=== PATIENT | male | born 1960 | race Caucasian/White ===

== ENCOUNTER 2021-02-02 05:11 | Observation (INO) ==
--- NOTE | 2021-01-23 08:41 | PAT Medication Instructions ---
Medication Instructions Date of Service January 23, 2021 Home Medications levothyroxine 200 mcg tablet 200 mcg PO DAILY celecoxib 200 mg capsule 200 mg PO DAILY ASK your surgeon for instructions celecoxib 200 mg capsule 200 mg PO DAILY Take morning of surgery With a small sip of water, OTHERWISE NOTHING TO EAT OR DRINK AFTER MIDNIGHT: levothyroxine 200 mcg tablet 200 mcg PO DAILY Other Notes If you have any questions please call us at [phone] or [phone] or [phone] or [phone]
--- NOTE | 2021-01-26 11:54 | Anesthesiology Consultation ---
Date of Service January 26, 2021 Assessment & Plan (1) Encounter for pre-operative examination: - COVID screening: Per assessment on 01/26: Travel screen negative, no known COVID-19 positive contacts or current COVID-19 related symptoms. 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 Patient vaccinated. Surgeon arranging preop COVID testing (scheduled 01/29; [facility]). Awaiting results. - Sleep apnea: s/p UPPP and then subsequent hypoglossal nerve stimulator placement- he only turns device on for sleeping hours (will bring remote DOS) Chart Review Chart Review: Acceptable Risk for Surgery and Patient seen in Pre Admission Testing Teaching & Discussion Pre-Anesthesia Teaching/Discussion Notes: Instructed NPO after midnight before surgery,except medications with 15 cc of water. Medication instructions provided according to the PAT guidelines. History Surgery Operation Date: 02/02/21 09:20 Proposed Procedures p Left Total Hip Arthroplasty Anterior - Wilfrid Morales, Height/Weight Height: 5 ft 10 in Weight: 87.8 kg Allergies Allergy/AdvReac Type Severity Reaction Status Date / Time latex Allergy Severe Hives Verified 01/23/21 16:59 oxycodone AdvReac Unknown Vomiting Verified 01/23/21 16:33 propoxyphene AdvReac Unknown Vomiting Verified 01/23/21 16:59 acetaminophen AdvReac Vomiting Verified 01/23/21 16:33 [From El] morphine AdvReac Vomiting Verified 01/23/21 16:33 Medications Home Medications Medication Instructions Recorded Confirmed Last Taken levothyroxine 200 mcg tablet 200 mcg PO QAM 11/12/20 01/23/21 Unknown celecoxib 200 mg capsule 200 mg PO QAM 12/30/20 01/23/21 Unknown Acid Reflux Med 1 dose PO HS 01/23/21 01/23/21 Unknown Past Medical History Medical History GERD (gastroesophageal reflux disease) Hypothyroidism Thalia's disease Osteoarthritis of left hip Sleep apnea s/p UPPP + hypoglossal nerve stimulator (advised to bring remote DOS) Exercise / Class Metabolic Activity II 4-5 Yardwork/Stairs/Walk up hill (one flight of stairs (no chest pain, no sob), 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 Maintained by Dr. Jessica Rowell ([facility] [phone]). Not MRI compatible. Past Anesthesia History No Hx of Anesthesia Complications (except PONV ) and No Family Hx of Anesthesia Complications History of PONV No Hx of Motion Sickness and History of PONV (Patient feels that it might have been related to pain medication as well (pt states he has discussed post-op pain management with surgeon)) Social History Smoking Status: Never smoker Do You Dip or Chew Tobacco: No Hx Alcohol Use: No Hx Substance Use: No Review of Systems Patient denies chest pain, shortness of breath, dyspnea on exertion, fever, chills, cough, wheezing, palpitations. Physical Exam Vital Signs VITALS BP 150/74 P 52 TEMP 98.1 SP02 98%RA RESP 16 PHYSICAL Full cervical extension range of motion. Full TMJ range of motion. TMD 3.5 finger breaths Mallampati Score 4 Dentition: intact Lungs: clear throughout to auscultation Cardiac: regular rate and rhythm with occasional missed beat, no murmurs noted Spine: normal Carotid arteries: negative bruit Extremities: no edema Lab Results Anesthesia Preop Results Results Anesthesia Widget: WBC 9.78 K/uL (4.8-10.8) 01/26/21 Hgb 12.4 g/dL (14.0-18.0) L 01/26/21 Hct 37.6 % (42-52) L 01/26/21 Plt 351 K/uL (130-400) 01/26/21 Na 138 mmol/L (136-145) 01/26/21 K 3.9 mmol/L (3.5-5.1) 01/26/21 Cl 103 mmol/L (98-107) 01/26/21 CO2 29 mmol/L (21-32) 01/26/21 BUN 11 mg/dl (7-18) 01/26/21 Creat 0.89 mg/dl (0.6-1.4) 01/26/21 Glucose Level 100 mg/dl (70-99) H 01/26/21 PT 9.8 Seconds (9.0-12.0) 01/26/21 PTT 22.0 Seconds (21.0-31.0) 01/26/21 INR 1.0 (0.9-1.1) 01/26/21 TSH 0.341 uIu/ml (0.300-4.500) 01/26/21 Free T4 1.29 ng/dl (0.8-1.6) 01/26/21 Blood Type A Positive 01/26/21 Antibody Screen NEGATIVE 01/26/21 Testing Electrocardiogram Date: 01/26/21 SR with PACs with aberrant conduction at 65bpm. Otherwise "normal" ECG. Chest X-Ray Date: 01/26/21 FINDINGS: Electronic device projects over the right chest. There is no pneumothorax or pleural effusion. There is no consolidation or evidence for pulmonary edema. Note is made of mild cardiomegaly. IMPRESSION: No acute cardiopulmonary findings. Mild cardiomegaly.
--- NOTE | 2021-01-29 14:06 | History & Physical Report ---
Date of Service January 29, 2021 Assessment & Plan (1) Osteoarthritis of left hip: We will proceed with a left anterior total hip arthroplasty. Postoperatively he will be kept overnight in the hospital for postoperative medical management. He will be started on aspirin for DVT prophylaxis. [facility]. History of Present Illness Chief Complaint: Arthritis of the left hip. Primary Care Provider: Rayo Rodriguez MD Casimiro is a pleasant 60-year-old male who is been doing with chronic increasing left hip and groin pain. X-rays and clinical examination have been diagnostic for advanced osteoarthritis of the left hip. After failing conservative treatment, he has elected to proceed with a left anterior total hip arthroplasty. He does have a history of a right hip replacement done about 2 years ago in [place].. Allergies Allergy/AdvReac Type Severity Reaction Status Date / Time latex Allergy Severe Hives Verified 01/23/21 16:59 oxycodone AdvReac Unknown Vomiting Verified 01/23/21 16:33 propoxyphene AdvReac Unknown Vomiting Verified 01/23/21 16:59 morphine AdvReac Vomiting Verified 01/23/21 16:33 Home Medications Medication Instructions Recorded Confirmed Type levothyroxine 200 mcg tablet 200 mcg PO QAM 11/12/20 01/23/21 History celecoxib 200 mg capsule 200 mg PO QAM 12/30/20 01/23/21 History Acid Reflux Med 1 dose PO HS 01/23/21 01/23/21 History Past Med/Surg History Medical History GERD (gastroesophageal reflux disease) Hypothyroidism Thalia's disease Osteoarthritis of left hip Sleep apnea s/p UPPP + hypoglossal nerve stimulator (advised to bring remote DOS) Surgical History H/O hernia repair x2 H/O knee surgery right knee x 3 H/O sinus surgery History of colonoscopy History of esophagogastroduodenoscopy (EGD) History of facial surgery repair of zygomatic fracture History of right hip replacement S/P excision of lipoma S/P UPPP (uvulopalatopharyngoplasty) Status post insertion of nerve stimulator Hypoglossal for sleep apnea. Maintained by Dr. Jessica Rowell ([facility] [phone]). Not MRI compatible. Family History Other No family history of adverse response to anesthesia Social History Smoking Status: Never smoker Second Hand Exposure: No; Hx Alcohol Use: No Hx Substance Use: No Preferred Language: Kiswahili Communication Ability: Effective Visual Impairment: No Limitations Hearing Ability: Normal Lead Infrastructure Architect Required: No Beliefs That Will Affect Care: None marital status: Current Living Situation: Alone current occupational status: employed current occupation: recreational therapist at [employer] Feels Safe at Home: Yes Assistive Devices: Glasses Review of Systems All systems reviewed & are unremarkable except as noted in HPI & below. Physical Exam On physical examination of the left hip, he has no leg length discrepancy. I can flex him 90 degrees. He has limited internal and external rotation. He has pain with forced internal rotation.. Constitutional WD/WN, vitals as above Eyes PERRL, conjunctivae normal, anicteric sclerae ENMT external ear and nose normal, oropharynx normal Neck trachea midline, no thyromegaly Respiratory normal respiratory effort Cardiovascular RRR, no murmur, no edema Gastrointestinal (Abdomen) normal bowel sounds, soft, nontender, no hepatosplenomegaly Psychiatric A+Ox3, euthymic affect Results & Data Results & Data Laboratory Results . Diagnostic Findings X-rays of the left hip do show advanced osteoarthritis with joint space narrowing, osteophyte formation, and [id number] articulation. PG Care Time/CCT Total # of Minutes Spent Total Time Spent with Patient: Total time spent is greater than 50% in coordination of care (as documented) at patient's floor/unit and/or counseling patient: Coding Level of Care Code None Diagnoses Osteoarthritis of left hip M16.12
[2021-02-02] MEDS ORDERED: LR 60ML/HR IV SCH (06:00)
[2021-02-02] MEDS ORDERED: GABAPENTIN 600 MG DOSE PO SCH (06:00)
[2021-02-02] MEDS ORDERED: dexAMETHasone 4 MG TAB PO SCH (06:00)
[2021-02-02] MEDS ORDERED: TRANEXAMIC ACID 1,000 MG **IV Pre-op IV SCH (06:00)
[2021-02-02] MEDS ORDERED: ACETAMINOPHEN 500 MG TAB PO SCH (06:00)
[2021-02-02] MEDS ORDERED: ROPIVACAINE 0.5% HCL/PF 150 MG, BUPIVACAINE 0.75% MPF 20 ML, EPINEPHrine 30MG/30ML (OR ... INSTIL SCH (06:00)
[2021-02-02] MEDS ORDERED: ceFAZolin 2000MG 2,000 MG/15 ML SYR IV SCH (06:00)
[2021-02-02] MEDS ORDERED: LR 500ML BOLUS, THEN 15ML/HR IV SCH (06:00)
[2021-02-02] MEDS ORDERED: TRANEXAMIC ACID 1,000 MG **IV Intra-op IV SCH (06:00)
[2021-02-02] MEDS ORDERED: FAMOTIDINE 20 MG TAB PO SCH (06:00)
[2021-02-02] MEDS ORDERED: BUPIVACAINE 0.5 % 5 MG/1 ML PF 10ML VIAL ONE (06:19)
--- NOTE | 2021-02-02 06:26 | History & Physical Bridge Note ---
Date of Service February 02, 2021 History & Physical Bridge Note I have examined the patient, reviewed the History & Physical and in the interval since the performance of the History & Physical I have noted the following changes of clinical significance: no changes noted
[2021-02-02] MEDS ORDERED: ONDANSETRON INJ 2 MG/ML 2 ML VIAL IV PRN ×2 (06:28→09:23)
[2021-02-02] MEDS ORDERED: ePHEDrine sulfate 50 MG/ML AMP IV PRN (06:28)
[2021-02-02] MEDS ORDERED: fentaNYL citrate 100 MCG/2 ML VIAL IV PRN (06:28)
[2021-02-02] MEDS ORDERED: ATROPINE SULFATE 0.1 MG/ML 10ML SYR IV PRN (06:28)
[2021-02-02] MEDS ORDERED: ORTHO JOINT ANESTHETIC ONE (06:30)
[2021-02-02] MEDS ORDERED: SCOPOLAMINE 1 MG TDSY TD ONE (06:33)
[2021-02-02] MEDS ORDERED: MIDAZOLAM HCL 1 MG/ML 2ML VIAL ONE ×2 (06:38→06:44)
[2021-02-02] MEDS ORDERED: fentaNYL citrate 100 MCG/2 ML VIAL ONE (06:44)
[2021-02-02] MEDS ORDERED: PROPOFOL IV EMULSION 10 MG/ML 20 ML VIAL IV ONE ×2 (07:44→08:11)
[2021-02-02] MEDS ORDERED: ePHEDrine sulfate 50 MG/ML SYR ONE (07:44)
[2021-02-02] MEDS ORDERED: ONDANSETRON INJ 2 MG/ML 2 ML VIAL ONE (07:44)
[2021-02-02] MEDS ORDERED: PHENYLEPHRINE 100MCG/ML 5ML SYR ONE (07:44)
--- NOTE | 2021-02-02 08:17 | Operative Report ---
PG Post Operative Report Pre & Post Diagnosis Operation Date: 02/02/21 07:00 Pre-Op Diagnosis: Degenerative Joint Disease Left Hip Post-Op Diagnosis: Degenerative Joint Disease Left Hip I identified the patient and participated in the time-out.: Yes Procedure Operation Date: 02/02/21 07:00 Actual Procedures p Left Anterior Total Hip Arthroplasty, Uncemented(Left) - Wilfrid Morales DO Surgeon Wilfrid Morales, Stationary Engineer Wilfrid Hooper PAC Estimated Blood Loss 150 Findings Consistent with Post-Op Diagnosis Specimens Left femoral head Complications none Disposition Disposition: Recovery Room Indications Casimiro is a pleasant 60-year-old male who presented my office with chronic increasing left hip and groin pain. X-rays and clinical examination were diagnostic for advanced osteoarthritis of the left hip. After failing conservative treatment, he elected proceed with a left anterior total hip arthroplasty. Description of Procedure Implants used I used a ZimmerBiomet total hip arthroplasty system with a size 6 high offset Avenir Complete stem, a 54 mm G7 cup with a 25mm screw, an E1 polyethylene liner, a 40 mm ceramic head with a +3.5 neck. Casimiro arrived at the hospital for the above procedure. He was seen in the preoperative holding area and the operative extremity was identified and signed. He was given a spinal anesthetic, a preoperative antibiotic, and TXA. He was then taken back to the operating room and laid on the table in the supine position. He was given basic sedation. The operative leg was secured to a Puristst leg positioner. The hip was then prepped and draped in sterile fashion. A timeout was done and the patient and the operative extremity was properly identified. An anterior approach was used. Dissection was taken down through the fascia and the tensor muscle belly was retracted laterally and the rectus was retracted medially. The circumflex vessels were identified and ligated. The capsule was then incised and tagged for later repair. The femoral neck was then cut and the femoral head was removed. The acetabulum was exposed. Time was spent doing a complete circumferential labral release. Sequential reaming of the acetabulum up to a size 53 reamer was done. Final reamings were done under fluoroscopy to ensure appropriate version. A Biomet 54 mm G7 cup was then impacted into place. A single 25 mm screw was placed. The E1 polyethylene liner was then snapped into place. Surrounding soft tissues were then injected with 100 cc of an orthopedic pain control cocktail. The proximal femur was then exposed. Sequential broaching up to a size 6 broach was done. Off that broach a size 40 head with a +3.5 neck was trialed. The hip was reduced and fluoroscopic images showed anatomic alignment of the implants in acceptable length. The broach was removed. The final size 6 high offset Avenir Complete stem was then impacted into place. A ceramic 40 mm head with a +3.5 neck was then impacted onto the stem and the hip was reduced. Final fluoroscopic images showed anatomic alignment of the hip. The capsule was then closed with #1 Vicryl suture. A dilute betadyne lavage was then done for 3 minutes. The joint was then irrigated with normal saline solution. The fascia was closed with #1 PDS suture. Skin was closed with 2-0 Vicryl, vladislav, and a Silverlon dressing. He was then transferred to a hospital bed and taken to the post anesthesia care unit in stable condition. He tolerated the procedure well. Wilfrid Hooper PA-C, was present for the entire procedure. He was critical for patient positioning, prepping, draping, retraction exposure, wound closure and application of sterile dressing. I attest to the content of the Intraoperative Record and any orders documented therein. Any exceptions are noted below.
--- NOTE | 2021-02-02 09:04 | Anesthesiology Progress Note ---
Date of Service February 02, 2021 Anesthesia Post Procedure Vital Signs Vital Signs: Temp Pulse Pulse Resp BP BP Pulse Ox 02/02/21 08:55 66 18 121/66 100 02/02/21 08:45 69 15 110/68 100 02/02/21 08:36 99.9 F H 79 19 129/70 98 02/02/21 06:28 67 20 130/78 97 02/02/21 05:52 98.1 F 71 20 142/84 H 96 Pain Intensity Left Hip: Pain Intensity: 7 Transfer of Care Handoff Completed per policy Notes Mental Status: alert / awake / arousable and participated in evaluation Patient Amnestic to Procedure: Yes Nausea / Vomiting: adequately controlled Pain: adequately controlled Airway Patency, RR, SpO2: stable & adequate BP & HR: stable & adequate Hydration State: stable & adequate Neuraxial Anesthesia: was administered and sensory block is resolving Anesthetic Complications: no major complications apparent and Pt Satisfied with anesthetic care
--- NOTE | 2021-02-02 09:07 | XRay Report ---
XR hip 1V LT w pelvis CLINICAL HISTORY: Postop left hip arthroplasty. COMPARISON: None. DISCUSSION: There are bilateral total hip arthroplasties. There is gas present adjacent to the left h ip consistent with recent surgery. There are left-sided skin vladislav. There is no dislocation. The ac etabular femoral components of the recently placed left hip prosthesis appear well seated. IMPRESSION: Postsurgical changes of a total left hip arthroplasty. No evidence of dislocation ACT 112: Negative or not required by law. Electronically signed by: Anthony Ruffin M.D. 02/02/2021 9:06 AM
[2021-02-02] MEDS ORDERED: HYDROmorphone INJ 0.5 MG/0.5 ML SYR IV PRN (09:23)
[2021-02-02] MEDS ORDERED: oxyCODONE HCL IR 5 MG TAB (IMMEDIATE RELEASE) PO PRN (09:23)
[2021-02-02] MEDS ORDERED: MAGNESIUM HYDROXIDE SUSP 30 ML UDC PO PRN (09:23)
[2021-02-02] MEDS ORDERED: NALOXONE HCL 0.4 MG/1 ML VIAL/CARP IV PRN (09:23)
[2021-02-02] MEDS ORDERED: bisacodyL 10 MG SUPP PR PRN (09:23)
[2021-02-02] MEDS ORDERED: METOCLOPRAMIDE HCL INJ 5 MG/ML 2 ML VIAL IV PRN (09:23)
--- NOTE | 2021-02-02 09:23 | Fluoroscopy Report ---
FL hip LT 1V CLINICAL HISTORY: LEFT ANTERIOR HIP COMPARISON STUDY: None FLUOROSCOPY TIME: 16 second. NUMBER OF FLUOROSCOPIC IMAGES: 2 FINDINGS: Fluoroscopic operative images are presented for review. Acetabular and femoral component placement of the left hip prosthetic joint are seen. Multiple tubes and wires are seen overlying pelvic region. IMPRESSION: As above. ACT 112: Negative or not required by law. The above report was generated using voice recognition software. It may contain grammatical, syntax o r spelling errors. Electronically signed by: Tiffanie Amado DO 02/02/2021 9:22 AM
[2021-02-02] MEDS: SODIUM CHLORIDE 0.9% 1000ML 1,000 ML IV SCH ×2 (09:57→21:01)
[2021-02-02] MEDS: KETOROLAC 30 MG/ML VIAL IV SCH ×3 (12:32→23:44)
[2021-02-02] MEDS: MULTIVITAMIN TAB PO SCH (12:33)
[2021-02-02] MEDS: ceFAZolin 2000MG 2,000 MG/15 ML SYR IV SCH ×2 (13:33→21:35)
[2021-02-02] MEDS: ACETAMINOPHEN 500 MG TAB PO SCH ×2 (13:33→21:35)
[2021-02-02] MEDS: ASPIRIN 81 MG ECTAB PO SCH (20:07)
[2021-02-02] MEDS: DOCUSATE SODIUM 100 MG CAP PO SCH (20:08)
[2021-02-02] MEDS ORDERED: Nursing to Pharmacy Communication SCH (20:30)
[2021-02-02] MEDS ORDERED: SENNA 8.6 MG TAB PO SCH (21:00)
[2021-02-03] MEDS: ACETAMINOPHEN 500 MG TAB PO SCH (05:52)
[2021-02-03] MEDS: MULTIVITAMIN TAB PO SCH (05:53)
[2021-02-03] MEDS: KETOROLAC 30 MG/ML VIAL IV SCH (05:53)
[2021-02-03] MEDS ORDERED: LEVOTHYROXINE SODIUM 200 MCG TABLET PO SCH (06:30)
--- NOTE | 2021-02-03 06:30 | Orthopedic Progress Note ---
Date of Service February 03, 2021 Assessment & Plan (1) Status post left hip replacement: Overall he is doing fairly well. Is not having much pain in the left hip. He will be seen by physical therapy today for ambulation and range of motion exercises. The dressing can be changed again. He is on aspirin for DVT prophylaxis. He can be discharged home later today. He will follow-up with orthopedics in 2 weeks. Subjective Casimiro was seen and examined at bedside this morning. Overall he is doing very well. Is not having any pain in the left hip. He has been up and ambulating to the bathroom. He had a little bit of bloody drainage last night and the dressing was changed. Otherwise, he has no complaints.. Review of Systems All systems reviewed & are unremarkable except as noted in HPI & below. Physical Exam On physical examination of the left hip, he still is a little bit of decreased sensation around his foot. He has active dorsiflexion plantarflexion of his left ankle. Sensations intact throughout. He has some bloody drainage on the dressing.. Results & Data Results & Data Laboratory Results . Diagnostic Findings Postoperative x-rays of the left hip show the prosthesis to be in anatomic alignment without any evidence of fracture, dislocation, or loosening. PG Care Time/CCT Total # of Minutes Spent Total Time Spent with Patient: Total time spent is greater than 50% in coordination of care (as documented) at patient's floor/unit and/or counseling patient: Coding Level of Care Code 56328 Post Operative Follow-Up Diagnoses Status post left hip replacement Z96.642
--- NOTE | 2021-02-03 06:31 | Discharge Summary ---
Date of Service February 03, 2021 Admission HPI (Per Admitting) Casimiro is a pleasant 60-year-old male who is been doing with chronic increasing left hip and groin pain. X-rays and clinical examination have been diagnostic for advanced osteoarthritis of the left hip. After failing conservative treatment, he has elected to proceed with a left anterior total hip arthroplasty. He does have a history of a right hip replacement done about 2 years ago in [place].. Admission Exam (Per Admitting) On physical examination of the left hip, he has no leg length discrepancy. I can flex him 90 degrees. He has limited internal and external rotation. He has pain with forced internal rotation.. Principal Diagnosis Same as "Discharge Diagnosis" noted below under Discharge Instructions. Discharge Exam On physical examination of the left hip, he still is a little bit of decreased sensation around his foot. He has active dorsiflexion plantarflexion of his left ankle. Sensations intact throughout. He has some bloody drainage on the dressing.. Discharge Data Procedures Performed Operation Date: 02/02/21 07:00 Actual Procedures p Left Anterior Total Hip Arthroplasty, Uncemented(Left) - Wilfrid Morales DO Ordered Studies 02/02/21 07:00 FL hip LT 1V Routine Hospital Course (1) Status post left hip replacement: On February 02, 2021 Casimiro arrived at [facility] and underwent a left anterior hip replacement without complication. He had a spinal anesthetic. Postoperatively he was started on aspirin for DVT prophylaxis and transferred to the general orthopedic floors. His hospital course was uneventful. On postop day #1 his vital signs were stable and his pain was well controlled. He did have some bloody drainage on the dressing and the dressing was changed. He was seen by physical therapy and able to participate with ambulation and range of motion exercises. He was then discharged home. He will follow-up with orthopedics in 2 weeks. PG Care Time/CCT Total # of Minutes Spent Total Time Spent with Patient: Total time spent is greater than 50% in coordination of care (as documented) at patient's floor/unit and/or counseling patient: Discharge Plan Discharge Items Patient Disposition: Home - Home Health Services Reason For Visit: DJD Hip Left Discharge Diagnosis: Left hip replacement Activity: Resume your previous activity Non-emergency contact: Surgeon Call non-emergency contact if: your wound has increased redness and your wound has increased drainage Follow-up/Referrals: Rayo Rodrigeuz MD [Primary Care Provider] - Diet: Regular Addtl Attending Provider Instructions: Activity and Therapy Recommendations: * If you are using [facility] then therapy will be provided at your home until they feel you have accomplished all of your goals. * If you are using [facility] then Physical Therapy will be provided until they feel you are ready to start Outpatient Physical Therapy. * If you are not using home therapy then Outpatient Physical Therapy should start about 3-5 days from your day of surgery. Therapy will last about 6-10 weeks * You were shown a series of exercises in the hospital. Do these exercises three times each day including the exercises you were shown in physical therapy. * Get up and walk several times each day.~ For the first four weeks, try not to stand or walk for more than one hour at a time. If you do stand or walk for more than one hour, you will not hurt anything, but your leg will likely swell.~~ * As you feel comfortable, you may change from the walker or crutches to a cane and~then to independent walking. Medications: * Narcotic You will likely be sent home from the hospital with a prescription for the narcotic pain medication that worked best throughout your stay. * Aspirin Most patients will be required to take Aspirin 81mg twice a day for 6 weeks after surgery. This is obtained [id number] and a prescription is not necessary. * Other medications may be prescribed for specific circumstances. If you have any questions, please call the office at . * Resume previous home medications unless otherwise instructed TEDs/Elastic Stockings: The white elastic stockings help limit swelling and prevent blood clots from forming in your legs. The more you wear them, the more they work. Wear them for six weeks. Dressing Care: You may do daily dry dressing changes. If the incision is not draining then you may leave the vladislav open to air. If there is a little bit of drainage or if the vladislav are getting stuck on your clothing then cover the incision with a dry dressing. The vladislav will be removed at your 2 week follow-up appointment. Showering: You may shower 5 days after the day of surgery if the incision is no longer draining. You may shower with the vladislav exposed. Let soapy water run over the vladislav and pat them dry. Do not scrub or soak the incision. Things To Watch For: * Drainage from the incision site that occurs more than one week after your surgery. * Increased redness at the incision site. * Fever above 102 degrees Fahrenheit. * Unusual chest pain or shortness of breath. * Call [facility] at with any of the above problems Follow-Up Visit: Follow-up with Dr. Morales's PA (Wilfrid Hooper) 2-3 weeks after your day of surgery. He will remove your vladislav and answer any questions. If you have any additional questions or concerns, Dr Morales is usually in the office at the same time and will be available An appointment was probably scheduled when you signed-up for surgery in the office. If you have any questions call Office Instructions: More detailed instructions as well as Frequently Asked Questions were provided in a folder by our office when you signed-up for surgery. Please review these instructions when you get home. If you have any further questions or concerns, please feel free to call the office at [phone] Pending Studies at Discharge: No Stand-Alone Forms: My [facility] [employer], Smoking Cessation Medications and DC Order Prescriptions: New tramadol 50 mg tablet 50 mg PO Q6H PRN (Reason: pain) Qty: 30 RF: 0 aspirin 81 mg Tablet,Delayed Release (Dr/Ec) 81 mg PO BID 42 Days Qty: 0 RF: 0 Continued levothyroxine [Synthroid] 200 mcg tablet 200 mcg PO QAM RF: 0 celecoxib [Celebrex] 200 mg capsule 200 mg PO QAM RF: 0 Acid Reflux Med 1 dose PO HS RF: 0 Discharge Orders: Discharge Order (Routine); Ordered 02/03/21 Ordered By: Wilfrid Morales Admission Data Admit Date/Time: 02/02/21 08:38 Attending Provider: Wilfrid Morales Admit Provider: Wilfrid Morales Primary Care Provider: Rayo Rodriguez
[2021-02-03] MEDS ORDERED: dexAMETHasone 4 MG TAB PO SCH (08:00)
[2021-02-03] MEDS: DOCUSATE SODIUM 100 MG CAP PO SCH (09:25)
[2021-02-03] MEDS: ASPIRIN 81 MG ECTAB PO SCH (09:25)
== END 2021-02-03 12:09 | disposition home health service (06) ==
LOC: 3E 05:11 → ASU 05:11